=== PATIENT | female | born 1960 | race Caucasian/White ===

== ENCOUNTER 2019-11-03 07:47 | Outpatient (CLI) | payer OTHER | END 2019-11-03 07:48 | disposition critical access hospital (66) | LOC: EMS 07:47 | PROVIDERS: ATTEND Surgery | DX: R01.2 Other cardiac sounds (principal); R11.2 Nausea with vomiting, unspecified; R25.2 Cramp and spasm | CPT/HCPCS: A0425; A0429 ==

== ENCOUNTER 2020-05-11 12:07 | Emergency (ER) | payer OTHER ==
[2020-05-11] MEDS ORDERED: HYDROcod/ACETAM 5/325 MG TABLET PO STA (12:49)
[2020-05-11] MEDS ORDERED: KETOROLAC 60 MG/2 ML VIAL IM STA (12:52)
--- NOTE | 2020-05-11 12:52 | ED Physician Documentation ---
History of Present Illness - Stated complaint Stated Complaint: LT SHOULDER PX - Chief complaint Chief Complaint: Ext Problem - History obtained from History obtained from: Patient - History of Present Illness Timing: Last night - Additonal information Additional information: 59-year-old female presents to the emergency department for evaluation of left shoulder pain after a fall in her bathroom yesterday evening. She fell onto the left shoulder. She reports that she felt a pop in the shoulder and the pain was so severe she could not get off the ground for nearly 1 hour. She does deny any loss of consciousness. Her partner used his TENS unit on the shoulder and she reported that it helped the pain.She has not taken anything orally for pain. She denies any history of previous injury. She cannot abduct or abduct the shoulder without pain at the AC joint. Review of Systems Constitutional: reports: Reviewed and negative Ears: reports: Reviewed and negative Nose: reports: Reviewed and negative Throat: reports: Reviewed and negative Cardiac: reports: Reviewed and negative Respiratory: reports: Reviewed and negative Skin: reports: Reviewed and negative Musculoskeletal: reports: Joint pain. denies: Neck pain, Back pain, Extremity swelling, Joint swelling, Pain with weight bearing Neurologic: reports: Reviewed and negative PD PAST MEDICAL HISTORY - Past Medical History Respiratory: Asthma GI: GERD - Past Surgical History Past Surgical History: Yes General: Bowel surgery - Present Medications Home Medications: Ambulatory Orders Medication Instructions Recorded Confirmed ARIPiprazole [Aripiprazole] 5 mg PO DAILY 11/03/19 11/03/19 Cetirizine HCl 10 mg PO DAILY 11/03/19 11/03/19 Lamotrigine [Lamotrigine ER] 2 tab DAILY 11/03/19 11/03/19 Montelukast Sodium 10 mg PO QPM 11/03/19 11/03/19 Omeprazole 40 mg PO DAILY 11/03/19 11/03/19 Oxybutynin [Oxytrol For Women] 1 each TD Q3D #30 patch.td.4 11/06/19 Hydrocodone/Acetaminophen [[place] 1 each PO TID PRN #20 tablet 05/11/20 5-325 Tablet] Ibuprofen [Motrin] 600 mg PO Q6H PRN #30 tab 05/11/20 - Allergies Allergies/Adverse Reactions: Allergies Allergy/AdvReac Type Severity Reaction Status Date / Time No Known Drug Allergies Allergy Verified 05/11/20 12:30 - Social History Does the pt smoke?: No Smoking Status: Never smoker Does the pt drink ETOH?: No Does the pt have substance abuse?: No - Immunizations Immunizations are current?: Yes PD ED PE NORMAL - General General: Alert and oriented X 3, Other (painful, crying) - HEENT HEENT: EOMI - Cardiac Cardiac: RRR, No murmur - Respiratory Respiratory: No respiratory distress, Clear bilaterally - Abdomen Abdomen: Normal bowel sounds - Back Back: No CVA TTP, No spinal TTP - Derm Derm: Normal color, Warm and dry, No rash - Extremities Extremities: No deformity. No: No tenderness to palpate, Normal ROM s pain (tenderness left shoulder at the AC joint. no pail with palpation of proximal humerus, scapula. Pt unable to move left shoulder withotu use of the right arm. 2+ radial pulse) - Neuro Neuro: Alert and oriented X 3, test borer 2-12 intact, No motor deficit Eye Opening: Spontaneous Motor: Obeys Commands Verbal: Oriented GCS Score: 15 Results - Vitals Vitals: Vital Signs - 24 hr 05/11/20 12:24 Temperature 36.9 C Heart Rate 82 Respiratory 16 Rate Blood Pressure 137/99 H O2 Saturation 93 Oxygen O2 Source Room air - Rads (name of study) Left shoulder/Clavicle Radiology: Final report received (Distal clavicular fracture on the left, no signs of a ligamentous disruption. No proximal humeral fracture found) PD MEDICAL DECISION MAKING - ED course Complexity details: reviewed results, re-evaluated patient, considered differential, d/w patient, d/w family ED course: 59-year-old female presents to the emergency department with acute left shoulder pain after a fall yesterday evening at home. X-ray of the shoulder and clavicle demonstrates a nondisplaced but slightly angulated left distal clavicle fracture. There is no tenting of the skin. Patient has normal cardiopulmonary respirations. Patient has been placed in a arm sling And will be referred to orthopedics for follow-up. I do recommend that she take Tylenol and ibuprofen for analgesia and [place] for severe pain only. Emergent return precautions discussed Departure - Departure Disposition: 01 Home, Self Care Clinical Impression: Closed left clavicular fracture Qualifiers: Encounter type: initial encounter Clavicle location: lateral end Fracture alignment: displaced Qualified Code(s): S42.032A - Displaced fracture of lateral end of left clavicle, initial encounter for closed fracture Condition: Stable Record reviewed to determine appropriate education?: Yes Instructions: ED Fx Clavicle Ch Follow-Up: [facility] [Provider Group] Prescriptions: Ibuprofen [Motrin] 600 mg PO Q6H PRN #30 tab PRN Reason: Pain Hydrocodone/Acetaminophen [[place] 5-325 Tablet] 1 each PO TID PRN #20 tablet PRN Reason: Pain Comments: Unfortunately the x-ray show that you have a fracture on the left clavicle. Typically this is a fracture that simply takes time to heal. We do recommend that you wear the arm sling for comfort. I would like you to place ice over the clavicle for 10 minutes 2 or 3 times a day. I also recommend that you take ibuprofen with food for pain and use the [place] for severe pain only. Please call the orthopedic doctor department for follow-up. I would like you to also schedule follow-up with your primary care doctor to discuss longer-term pain management. If at any point you develop difficulty breathing, have numbness or tingling in your hand develop arm swelling or have any other emergent concerns please return immediately to the ER
--- NOTE | 2020-05-11 13:50 | XRAY Report ---
PROCEDURE: Clavicle LT INDICATIONS: fall; ? AC separation TECHNIQUE: 2 views of the clavicle were acquired. COMPARISON: None. FINDINGS: Bones: No dislocations. No suspicious bony lesions. Note is made of a mildly displaced distal clav icular fracture which does not appear to extend into the AC joint. Abnormal widening of the AC joint is not found, and there is no elevation of the clavicle at the coracoclavicular area. Soft tissues: No suspicious soft tissue calcifications. IMPRESSION: Acute mildly displaced distal left clavicular fracture without evidence of ligamentous laxity enlargi ng the AC joint or the coracoclavicular joint. Reviewed by: Johnathon Clark MD on 05/11/2020 1:49 PM PDT Approved by: Johnathon Clark MD on 05/11/2020 1:49 PM PDT Station ID: [id number]
--- NOTE | 2020-05-11 13:52 | XRAY Report ---
PROCEDURE: Shoulder 3 View LT INDICATIONS: fall; r/o fx TECHNIQUE: 4 views of the shoulder were acquired. COMPARISON: None. FINDINGS: Bones: No dislocations. No suspicious bony lesions. Visualized ribs appear intact. Note is made of the distal left clavicular fracture, mildly displaced, without abnormal alignment at the acromioclav icular or coracoclavicular ligaments. Soft tissues: No suspicious soft tissue calcifications. IMPRESSION: Distal clavicular fracture on the left, no sign of ligamentous disruption. No proximal h umeral fracture found. Reviewed by: Johnathon Clark MD on 05/11/2020 1:50 PM PDT Approved by: Johnathon Clark MD on 05/11/2020 1:50 PM PDT Station ID: [id number]
[2020-05-11 14:12] VITALS: BP 147/89
--- NOTE | 2020-05-11 14:17 | XRAY Report ---
PROCEDURE: Chest 1 View X-Ray INDICATIONS: chest pain TECHNIQUE: One view of the chest was acquired. COMPARISON: None FINDINGS: Surgical changes and devices: None. Lungs and pleura: No pleural effusions or pneumothorax. Lungs are clear. Mediastinum: Mediastinal contours appear normal. Mild cardiomegaly. Bones and chest wall: No suspicious bony lesions. Overlying soft tissues appear unremarkable. IMPRESSION: Cardiomegaly. No evidence acute pulmonary process. Reviewed by: Shaq Almonte MD on 05/11/2020 1:16 PM AKDT Approved by: Shaq Almonte MD on 05/11/2020 1:16 PM AKDT Station ID: [id number]
== END 2020-05-11 14:19 | disposition home or self-care (01) ==
LOC: ED 12:07
DX: S42.035A Nondisplaced fracture of lateral end of left clavicle, initial encounter for closed fracture (principal); W19.XXXA Unspecified fall, initial encounter; Y92.002 Bathroom of unspecified non-institutional (private) residence as the place of occurrence of the external cause
CPT/HCPCS: 71045; 73000; 73030; 96372; 99284; A9270

== ENCOUNTER 2020-07-24 13:43 | Outpatient (CLI) | payer OTHER ==
--- NOTE | 2020-07-24 13:46 | XRAY Report ---
PROCEDURE: Clavicle LT INDICATIONS: DISPLACED FX OF SHAFT OF L CLAVICLE TECHNIQUE: 2 views of the clavicle were acquired. COMPARISON: Prior acute trauma plain films 05/11/2020. FINDINGS: Bones: No previously unidentified fractures or dislocations. Mildly impacted healing or healed left distal clavicular fracture. No suspicious bony lesions. Soft tissues: No suspicious soft tissue calcifications. IMPRESSION: Mildly impacted healing or healed distal left clavicular fracture, with no additional traumatic injur y to the left shoulder or chest visualized. Reviewed by: Johnathon Clark MD on 07/24/2020 1:44 PM PST Approved by: Johnathon Clark MD on 07/24/2020 1:44 PM PST Station ID: [id number]
== END 2020-07-24 23:59 | disposition home or self-care (01) ==
LOC: DI.N 13:43
PROVIDERS: ATTEND Orthopaedic Surgery
DX: S42.022A Displaced fracture of shaft of left clavicle, initial encounter for closed fracture (principal)

== ENCOUNTER 2020-09-04 07:26 | Outpatient (CLI) | payer OTHER ==
--- NOTE | 2020-09-04 20:07 | XRAY Report ---
PROCEDURE: Clavicle LT INDICATIONS: DISPLACED FX OF SHAFT OF L CLAVICLE TECHNIQUE: 2 views of the clavicle were acquired. COMPARISON: 07/24/2020. FINDINGS: Bones: Redemonstration of known distal left clavicular fracture with overriding of the distal fractur e fragment. Stable alignment. Suggestion of decreased conspicuity of the fracture line compatible wit h progress towards fracture healing. No suspicious bony lesions. Soft tissues: No suspicious soft tissue calcifications. IMPRESSION: Stable alignment of distal left clavicular fracture with findings suggesting progress towards fractur e healing. Reviewed by: Amarjit Sherman MD on 09/04/2020 7:05 PM AK Approved by: Amarjit Sherman MD on 09/04/2020 7:05 PM AK Station ID: [id number]
== END 2020-09-04 23:59 | disposition home or self-care (01) ==
LOC: DI.N 07:26
PROVIDERS: ATTEND Orthopaedic Surgery
DX: S42.022D Displaced fracture of shaft of left clavicle, subsequent encounter for fracture with routine healing (principal)

== ENCOUNTER 2021-02-09 23:35 | Outpatient (CLI) | payer OTHER | END 2021-02-09 23:36 | disposition critical access hospital (66) | LOC: EMS 23:35 | DX: R10.9 Unspecified abdominal pain (principal); R11.2 Nausea with vomiting, unspecified | CPT/HCPCS: A0425; A0427 ==

== ENCOUNTER 2021-02-10 00:31 | Emergency (ER) | payer OTHER ==
[2021-02-10] MEDS ORDERED: SODIUM CHLORIDE 0.9% 1,000 ML IV STA (00:43)
[2021-02-10] MEDS ORDERED: ONDANSETRON 4 MG/2 ML VIAL IVP STA (00:43)
--- NOTE | 2021-02-10 00:49 | ED Physician Documentation ---
History of Present Illness - Stated complaint Stated Complaint: ABD PX - Chief complaint Chief Complaint: Abd Pain - History obtained from History obtained from: Patient - Additonal information Additional information: 60-year-old woman with history of frequent small bowel obstruction with four ex laps to correct them, most recent 7 years ago at [facility], also with history of open hysterectomy and laparoscopic cholecystectomy, presents with epigastric pain sudden in onset about 2 hours prior to arrival, intermittent spasming that is 10 out of 10, associated with nonbloody nonbilious nausea and vomiting. She also has had several episodes of nonbloody diarrhea today. denies cp, sob, lightheadedness, fever. Review of Systems Ten Systems: 10 systems reviewed and negative Constitutional: denies: Fever, Chills Cardiac: denies: Chest pain / pressure Respiratory: denies: Dyspnea GI: reports: Abdominal Pain, Nausea, Vomiting, Diarrhea : denies: Dysuria Musculoskeletal: reports: Back pain PD PAST MEDICAL HISTORY - Past Medical History Respiratory: Asthma GI: GERD - Past Surgical History Past Surgical History: Yes General: Bowel surgery - Present Medications Home Medications: Ambulatory Orders Medication Instructions Recorded Confirmed ARIPiprazole [Aripiprazole] 5 mg PO DAILY 11/03/19 11/03/19 Cetirizine HCl 10 mg PO DAILY 11/03/19 11/03/19 Lamotrigine [Lamotrigine ER] 2 tab DAILY 11/03/19 11/03/19 Montelukast Sodium 10 mg PO QPM 11/03/19 11/03/19 Omeprazole 40 mg PO DAILY 11/03/19 11/03/19 Oxybutynin [Oxytrol For Women] 1 each TD Q3D #30 patch.td.4 11/06/19 Ibuprofen [Motrin] 600 mg PO Q6H PRN #30 tab 05/11/20 Ondansetron Odt [Zofran] 4 mg TL Q6H PRN #10 tablet 02/10/21 risperiDONE [RisperDAL] 02/10/21 - Allergies Allergies/Adverse Reactions: Allergies Allergy/AdvReac Type Severity Reaction Status Date / Time No Known Drug Allergies Allergy Verified 02/10/21 00:52 - Social History Does the pt smoke?: No Smoking Status: Never smoker Does the pt drink ETOH?: No Does the pt have substance abuse?: No - Immunizations Immunizations are current?: Yes PD ED PE NORMAL - Vitals Vital signs reviewed: Yes - General General: Alert and oriented X 3, No acute distress, Well developed/nourished - HEENT HEENT: Atraumatic, PERRL, EOMI - Neck Neck: Supple, no meningeal sign - Cardiac Cardiac: RRR - Respiratory Respiratory: No respiratory distress, Clear bilaterally - Abdomen Abdomen: Other (epigastrium ttp. discomfort diffusely to palpation) - Derm Derm: Normal color - Extremities Extremities: No deformity - Neuro Neuro: Alert and oriented X 3 - Psych Psych: Normal mood, Normal affect Results - Vitals Vitals: Vital Signs - 24 hr 02/10/21 02/10/21 02/10/21 00:43 02:46 04:00 Temperature 36.2 C L 36.5 C Heart Rate 68 63 84 Respiratory 18 18 18 Rate Blood Pressure 146/91 H 127/81 H 112/62 O2 Saturation 98 96 94 Oxygen O2 Source Room air - EKG (time done) 0230 Rate: Rate (enter#) (63) Rhythm: NSR QRS: LVH Computer interpretation: Disagree with computer (no BOUBACAR in inferior leads. motion artifact) - Labs Labs: Laboratory Tests 02/10/21 02/10/21 02/10/21 00:54 00:54 03:00 WBC 12.2 H RBC 4.16 L Hgb 12.0 Hct 36.9 L MCV 88.7 MCH 28.8 MCHC 32.5 RDW 12.8 Plt Count 285 MPV 10.0 Neut # (Auto) 9.7 H Lymph # (Auto) 1.5 Pender # (Auto) 0.8 Eos # (Auto) 0.1 Baso # (Auto) 0.1 Absolute Nucleated RBC 0.00 Nucleated RBC % 0.0 Sodium 137 Potassium 3.4 L Chloride 105 Carbon Dioxide 22 Anion Gap 10.0 BUN 9 Creatinine 1.0 Estimated GFR (MDRD) 57 L Glucose 113 H Calcium 8.7 Total Bilirubin 1.2 H AST 93 H ALT 40 Alkaline Phosphatase 153 H Total Protein 7.3 Albumin 3.8 Globulin 3.5 Albumin/Globulin Ratio 1.1 Lipase 33 Urine Color YELLOW Urine Clarity CLEAR Urine pH 6.5 Ur Specific Borden <=1.005 Urine Protein NEGATIVE Urine Glucose (UA) NEGATIVE Urine Ketones NEGATIVE Urine Occult Blood NEGATIVE Urine Nitrite NEGATIVE Urine Bilirubin NEGATIVE Urine Urobilinogen 0.2 (NORMAL) Ur Leukocyte Esterase NEGATIVE Ur Microscopic Review NOT INDICATED Urine Culture Comments NOT INDICATED PD MEDICAL DECISION MAKING - ED course ED course: 60-year-old woman with frequent small bowel obstructions presents with abdominal pain today. Will evaluate further evaluate CT scan. Departure - Departure Disposition: Home, Self Care Clinical Impression: Abdominal pain, Hiatal hernia, Nausea, Pulmonary nodule Condition: Good Instructions: Hiatal Hernia, ED Nodule Solitary Pulmonary Prescriptions: Ondansetron Odt [Zofran] 4 mg TL Q6H PRN #10 tablet PRN Reason: Nausea / Vomiting Comments: You were seen in the emergency department for abdominal pain and found to have a hiatal hernia on CT. You do not have a small bowel obstruction at this time. You also have a spot on your lung and the radiologist recommended that you get a follow-up CT of the chest to evaluate this further. Please see your doctor in [place] in order to have this completed. Return to the emergency department if you develop any new or worsening symptoms or have other concerns. Glad you are feeling better!
[2021-02-10] MEDS ORDERED: IOPAMIDOL-300 50 ML VIAL ONE (00:50)
[2021-02-10] MEDS ORDERED: IOVERSOL 320 100 ML VIAL IVP ONE ×2 (00:50→05:08)
[2021-02-10 00:58] LABS: BASOPHILS # (AUTO) 0.1 10^3/uL (0.0-0.1); BASOPHILS % (AUTO) 0.6 %; EOSINOPHILS # (AUTO) 0.1 10^3/uL (0.0-0.7); EOSINOPHILS % (AUTO) 0.7 %; HCT - HEMATOCRIT 36.9 % (37.0-47.0); LYMPHOCYTES # (AUTO) 1.5 10^3/uL (1.5-3.5); LYMPHOCYTES % (AUTO) 12.3 %; MEAN CORPUSCULAR HEMOGLOBIN 28.8 pg (27.0-31.0); MEAN CORPUSCULAR HGB CONC 32.5 g/dL (32.0-36.0); MEAN CORPUSCULAR VOLUME 88.7 fL (81.0-99.0); MONOCYTES # (AUTO) 0.8 10^3/uL (0.0-1.0); MONOCYTES % (AUTO) 6.4 %; NEUTROPHILS # (AUTO) 9.7 10^3/uL (1.5-6.6); NEUTROPHILS % (AUTO) 79.7 %; PLT - PLATELET COUNT 285 10^3/uL (130-450); RED BLOOD COUNT 4.16 10^6/uL (4.20-5.40); RED CELL DISTRIBUTION WIDTH 12.8 % (12.0-15.0); WHITE BLOOD COUNT 12.2 x10^3/uL (4.8-10.8)
[2021-02-10 01:13] LABS: ALBUMIN 3.8 g/dL (3.2-5.5); ALBUMIN/GLOBULIN RATIO 1.1 (1.0-2.2); BILIRUBIN,TOTAL 1.2 mg/dL (0.2-1.0); CALCIUM 8.7 mg/dL (8.5-10.3); POTASSIUM 3.4 mmol/L (3.5-5.0); TOTAL PROTEIN 7.3 g/dL (6.7-8.2)
[2021-02-10] MEDS ORDERED: HYDROmorphone 1 MG/ML CARPUJECT IVP STA (02:42)
[2021-02-10 03:09] LABS: BILIRUBIN,URINE NEGATIVE (NEGATIVE); GLUCOSE, URINE (UA) NEGATIVE (NEGATIVE); KETONES,URINE (UA) NEGATIVE (NEGATIVE); LEUKOCYTE ESTERASE, URINE NEGATIVE (NEGATIVE); NITRITE,URINE NEGATIVE (NEGATIVE); OCCULT BLOOD,URINE NEGATIVE (NEGATIVE); PH,URINE 6.5 PH (5.0-7.5); PROTEIN,URINE NEGATIVE (NEGATIVE); UROBILINOGEN,URINE 0.2 (NORMAL) E.U./dL (NORMAL)
[2021-02-10 03:18] LABS: CLARITY,URINE CLEAR (CLEAR)
[2021-02-10] MEDS ORDERED: IOPAMIDOL-300 50 ML VIAL PO ONE (05:09)
[2021-02-10 05:56] VITALS: BP 106/82
--- NOTE | 2021-02-10 08:26 | CT Report ---
PROCEDURE: Abdomen/Pelvis W INDICATIONS: epigastric abd pain sudden onset tonight, n/v CONTRAST: IV CONTRAST: Optiray 320 ml: 100 PO CONTRAST: Isovue 300 ml50 TECHNIQUE: After the administration of intravenous contrast, 5 mm thick sections acquired from the diaphragms to the symphysis. 5 mm thick coronal and sagittal reformats were acquired. For radiation dose reducti on, the following was used: automated exposure control, adjustment of mA and/or kV according to mary ent size. COMPARISON: None. FINDINGS: Image quality: Excellent. ABDOMEN: Lung bases: On the most superior image there is a 1.6 cm noncalcified pulmonary nodule. Chest CT is recommended. Lung bases are clear. Heart size is normal. Solid organs: Liver and spleen are normal in size and enhancement. Gallbladder is surgically absent Biliary system is non dilated. Pancreas enhances normally. No adrenal nodules. Kidneys demonstra te normal size and enhancement, without hydronephrosis. Peritoneum and bowel: There is no dilated inflamed appendix identified. The terminal ileum is somewha t prominent with questionable wall fatty infiltration suggesting previous inflammation. The ileocecal valve is prominent. No colonic wall thickening is identified. No free fluid or air. Nodes and vessels: No retroperitoneal or mesenteric adenopathy by size criteria. Aorta and inferior vena cava are normal in size. Miscellaneous: No ventral hernias. PELVIS: Genitourinary: Bladder wall thickness is normal. Miscellaneous: No inguinal hernias or adenopathy. Remote hysterectomy. A pessary device is in place . Bones: No suspicious bony lesions. No vertebral body compression fractures. IMPRESSION: 1. 1.6 cm noncalcified right pulmonary nodule is seen on the highest image. Recommend dedicated chest CT. 2. Mild prominence of the terminal ileum without acute inflammation. Suggestion of previous inflammat ion. 3. No evidence of acute abdominal process. 4. Remote cholecystectomy and hysterectomy. A preliminary report with the above findings was provided at the time of the study by [facility]. Reviewed by: Shaq Almonte MD on 02/10/2021 7:25 AM MAX Approved by: Shaq Almonte MD on 02/10/2021 7:25 AM MAX Station ID: [id number]
== END 2021-02-10 06:00 | disposition home or self-care (01) ==
LOC: EDUNIT# → ED 00:31
DX: K44.9 Diaphragmatic hernia without obstruction or gangrene (principal); R91.1 Solitary pulmonary nodule; Z87.19 Personal history of other diseases of the digestive system
CPT/HCPCS: 36415; 74177; 80053; 81003; 83690; 85025; 93005; 96361; 96374; 96375; 99284; J1170; Q9967; 81001; 87086

== ENCOUNTER 2022-07-03 13:48 | Outpatient (CLI) | payer OTHER ==
--- NOTE | 2022-07-10 12:03 | Mammography Report ---
BILATERAL DIGITAL SCREENING MAMMOGRAM 3D/2D: 07/03/2022 CLINICAL: Routine screening. No prior exams were available for comparison. There are scattered areas of fibroglandular density in both breasts (category b / 25%-50% glandular t issue). No significant masses, calcifications, or other findings are seen in either breast. IMPRESSION: NEGATIVE There is no mammographic evidence of malignancy. A 1 year screening mammogram is recommended. Based on the Tyrer Cuzick model (a risk assessment model) the patients lifetime risk is 9.2% and her 10 year risk is 3.5%. According to the ACR, ACS, and NCCN guidelines, an annual breast MRI exam vasile g with mammogram is recommended if the patients lifetime risk is 20% or greater. This exam was interpreted at Station ID: [id number]. NOTE: For mammograms, a report in lay terms will be sent to the patient. Approximately 15% of breast malignancies will not be visualized mammographically. In the management of a palpable breast mass, a negative mammogram must not discourage biopsy of a clinically suspicious lesion. Electronically Signed By: Amarjit abdi/daniel:07/10/2022 08:38:13 ACR BI-RADS Category 1: Negative 3341F PARENCHYMAL PATTERN: (A) - The breast(s) demonstrate(s) scattered fibroglandular densities. BI-RADS CATEGORY: (1) - 1 RECOMMENDATION: (ANNUAL) - Recommend routine annual screening mammography. [id number] 1 year screening LATERALITY: (B)
== END 2022-07-03 13:49 | disposition home or self-care (01) ==
LOC: DI.N 13:48
PROVIDERS: ATTEND Physician Assistant
DX: Z12.31 Encounter for screening mammogram for malignant neoplasm of breast (principal)

== ENCOUNTER 2022-10-22 11:04 | Emergency (ER) | payer OTHER ==
[2022-10-22] MEDS ORDERED: HYDROcod/ACETAM 5/325 MG TABLET PO STA (11:53)
[2022-10-22] MEDS ORDERED: DEXAMETHASONE 10 MG/ML VIAL IM STA (11:53)
[2022-10-22] MEDS ORDERED: KETOROLAC 60 MG/2 ML VIAL IM STA (11:53)
--- NOTE | 2022-10-22 12:27 | ED Physician Documentation ---
PD HPI ABD PAIN - Stated complaint Stated Complaint: LFT LOWER ABD PX - Chief complaint Chief Complaint: Abd Pain - History obtained from History obtained from: Patient - Additional information Additional information: The patient comes to the emergency department chief complaint of left rib and flank pain that started a few days ago. She states that it is a sharp pain she also has some heartburn. She has a history of bowel obstructions and at first was worried about this, but has not had any vomiting or lapse in her bowel movement/flatus. The patient states that she has a sharp pain over her left inferolateral rib cage that hurts worse with deep breaths and other movements. She has not had any injury to the area. She denies any history of zoster and has not noticed a rash. Patient has not been ill with anything recently. No cough or shortness of breath, though it does hurt to take a deep breath. Patient denies any other complaints at this time. 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 : None HEENT: None Psych: Depression, Anxiety Musculoskeletal: None Derm: None - Past Surgical History Past Surgical History: Yes General: Cholecystectomy, Bowel surgery /SHOPPING INVESTIGATOR: Hysterectomy, Oophrectomy - Present Medications Home Medications: Ambulatory Orders Medication Instructions Recorded Confirmed ARIPiprazole [Aripiprazole] 5 mg PO DAILY 11/03/19 10/22/22 Cetirizine HCl 10 mg PO DAILY 11/03/19 10/22/22 Lamotrigine [Lamotrigine ER] 2 tab DAILY 11/03/19 11/03/19 Montelukast Sodium 10 mg PO QPM 11/03/19 10/22/22 Omeprazole 40 mg PO DAILY 11/03/19 10/22/22 risperiDONE [RisperDAL] 0.25 mg ORAL HS 02/10/21 10/22/22 HYDROcod/ACETAM 5/325 [Stella 5/325] 1 - 2 tablet PO Q6H PRN #10 tablet 10/22/22 predniSONE [Deltasone] 60 mg PO DAILY 5 Days #15 tablet 10/22/22 - Allergies Allergies/Adverse Reactions: Allergies Allergy/AdvReac Type Severity Reaction Status Date / Time No Known Drug Allergies Allergy Verified 10/22/22 11:28 - Social History Does the pt smoke?: No Smoking Status: Never smoker Does the pt drink ETOH?: No Does the pt have substance abuse?: Yes Substance Use and Type: Marijuana - Immunizations Immunizations are current?: Yes PD ED PE NORMAL - Vitals Vital signs reviewed: Yes - General General: Alert and oriented X 3, No acute distress, Well developed/nourished, Other (The patient appears moderately uncomfortable but otherwise in no apparent distress.) - HEENT HEENT: Atraumatic, PERRL, EOMI, Moist mucous membranes - Neck Neck: Supple, no meningeal sign - Cardiac Cardiac: RRR, No murmur - Respiratory Respiratory: No respiratory distress, Clear bilaterally - Abdomen Abdomen: Soft, Non tender, Non distended - Derm Derm: Normal color, Warm and dry, No rash - Extremities Extremities: No deformity, No edema - Neuro Neuro: Alert and oriented X 3, No motor deficit, No sensory deficit - Psych Psych: Normal mood, Normal affect PD ED PE EXPANDED - Free text exam Free text exam: Exquisite tenderness over left inferolateral rib cage. No deformity. No crep itus. No mass or fluctuance. Results - Vitals Vitals: Oxygen O2 Source Room air - Rads (name of study) L ribs/chest XR Radiology: Final report received, See rad report (neg) PD Medical Decision Making - ED course Complexity details: reviewed results, re-evaluated patient, considered differential, d/w patient ED course: The pt was treated symptomatically in the ED, and worked up with CXR, which was negative. I d/w pt that her pain is localized over her L ribs, but is atraumatic. She has no abdominal tenderness, and I do not feel abdominal work- up is indicated. We have discussed that this is most likely of a musculoskeletal etiology, and is expected to resolve on its own. We have discussed the usual indications for return. Departure - Departure Disposition: 01 Home, Self Care Clinical Impression: Chest wall pain Condition: Stable Instructions: ED Chest Pain Costochondritis Prescriptions: predniSONE [Deltasone] 60 mg PO DAILY 5 Days #15 tablet HYDROcod/ACETAM 5/325 [Stella 5/325] 1 - 2 tablet PO Q6H PRN #10 tablet PRN Reason: Pain Comments: Your x-ray series looks good. You have tenderness very distinctly over your lateral lower rib cage on the left. There is no abdominal tenderness and you do not have any symptoms of bowel obstruction. Your symptoms are most consistent with inflammation of one of the musculoskeletal structures of the chest wall. This will most likely calm down on its own, given time. A prescription for the pain medication and steroid has been electronically transmitted to the [facility] in [place]. If you develop a high fever or severely worsening pain, you may return to the emergency department. If you break out in a rash over the area, you most likely have shingles and can consider asking your doctor to put you on an antiviral. In general, though, your symptoms are expected to resolve on their own, given the next few days to week or two. Discharge Date/Time: 10/22/22 13:39
--- NOTE | 2022-10-22 12:27 | XRAY Report ---
PROCEDURE: Ribs w/PA Chest LT INDICATIONS: L rib pain TECHNIQUE: 4 views of the left ribs were acquired, along with a single view chest. COMPARISON: Chest radiograph dated 05/11/2020 FINDINGS: Surgical changes and devices: None. Bones and chest wall: No fractures or dislocations. No suspicious bony lesions. Overlying soft tis sues appear unremarkable. Lungs and pleura: No pleural effusions or pneumothorax. Lungs appear clear. Mediastinum: Mediastinal contours appear normal. Heart size is normal. IMPRESSION: No gross displaced left rib fracture is seen. No acute cardiopulmonary pathology. Reviewed by: Caden Cunha MD on 10/22/2022 12:25 PM PST Approved by: Caden Cunha MD on 10/22/2022 12:25 PM PST Station ID: [id number]
[2022-10-22 13:37] VITALS: BP 149/89
== END 2022-10-22 13:39 | disposition home or self-care (01) ==
LOC: ED 11:04
DX: R07.89 Other chest pain (principal)
CPT/HCPCS: 71101; 96372; 99283; A9270

== ENCOUNTER 2023-08-12 12:08 | Outpatient (CLI) | payer OTHER ==
--- NOTE | 2023-08-13 12:12 | Mammography Report ---
BILATERAL DIGITAL SCREENING MAMMOGRAM 3D/2D: 08/12/2023 CLINICAL: Routine screening. Family history of breast cancer. Comparison is made to exam dated: 07/03/2022 mammogram - [facility]. There are scattered areas of fibroglandular density in both breasts (category b / 25%-50% glandular t issue). No significant masses, calcifications, or other findings are seen in either breast. There has been no significant interval change. IMPRESSION: NEGATIVE There is no mammographic evidence of malignancy. A 1 year screening mammogram is recommended. Based on the Tyrer Cuzick model (a risk assessment model) the patients lifetime risk is 9.0% and her 10 year risk is 3.6%. According to the ACR, ACS, and NCCN guidelines, an annual breast MRI exam vasile g with mammogram is recommended if the patients lifetime risk is 20% or greater. This exam was interpreted at Station ID: [id number]. NOTE: For mammograms, a report in lay terms will be sent to the patient. Approximately 15% of breast malignancies will not be visualized mammographically. In the management of a palpable breast mass, a negative mammogram must not discourage biopsy of a clinically suspicious lesion. Electronically Signed By: Amarjit Sherman M.D. [email or web address]:08/12/2023 20:13:35 letter sent: No_Letter ACR BI-RADS Category 1: Negative 3341F PARENCHYMAL PATTERN: (A) - The breast(s) demonstrate(s) scattered fibroglandular densities. BI-RADS CATEGORY: (1) - 1 Mammogram [id number] 1 year screening LATERALITY: (B)
== END 2023-08-12 12:09 | disposition home or self-care (01) ==
LOC: DI.N 12:08
PROVIDERS: ATTEND Student in an Organized Health Care Education/Training Program
DX: Z12.31 Encounter for screening mammogram for malignant neoplasm of breast (principal); Z80.3 Family history of malignant neoplasm of breast; R92.323 Mammographic fibroglandular density, bilateral breasts

== ENCOUNTER 2024-03-01 01:35 | Outpatient (CLI) | payer OTHER | END 2024-03-01 01:36 | disposition critical access hospital (66) | LOC: EMS 01:35 | DX: R07.89 Other chest pain (principal); R06.4 Hyperventilation | CPT/HCPCS: A0425; A0429 ==

== ENCOUNTER 2024-03-01 02:06 | Emergency (ER) | payer OTHER ==
--- NOTE | 2024-03-01 02:20 | ED Physician Documentation ---
History of Present Illness - Stated complaint Stated Complaint: CP - History obtained from History obtained from: Patient - Additonal information Additional information: The patient comes to the emergency department chief complaint of chest pressure. The patient reports that she had felt as though she was having a "mild panic attack", but then began to feel a discomfort across her left chest that settled into her substernal area and felt like "an elephant's foot on my chest". The patient took a nitro which seemed to help and then drink some water, but she began to feel as though the water was refluxing into her esophagus. She felt the pressure sensation in her chest again so she took another nitro and drink more water and again began to feel a pressure due to. The patient then vomited and then took 1 more nitro and she states that after that things seem to get better. The patient then called 911. She states she has a history of the symptoms previously and about a year ago was seen at [facility] in [place] for something similar. Her troponin was elevated at that higher, and she was sent to [facility] where angiogram was done and she was found to have clear coronary arteries. However, she states the property administrator told her that her "heart muscle was spasming" and put her on a medication to prevent "heart muscle spasm". The patient states she is feeling completely better now after her episode this evening. No other complaints at this time. 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: Other : None HEENT: None Psych: Depression, Anxiety Musculoskeletal: None Derm: None - Past Surgical History Past Surgical History: Yes General: Cholecystectomy, Bowel surgery /OPEN SOAPER TENDER: Hysterectomy, Oophrectomy - Present Medications Home Medications: Ambulatory Orders Medication Instructions Recorded Confirmed Montelukast Sodium 10 mg PO QPM 11/03/19 03/01/24 Omeprazole 40 mg PO DAILY 11/03/19 03/01/24 Amlodipine Besylate 2.5 mg PO DAILY 03/01/24 03/01/24 Atorvastatin Calcium 40 mg PO DAILY 03/01/24 03/01/24 Fluoxetine HCl [Prozac] 40 mg PO DAILY 03/01/24 03/01/24 clonazePAM [Klonopin] 0.5 mg PO QPM PRN 03/01/24 03/01/24 - Allergies Allergies/Adverse Reactions: Allergies Allergy/AdvReac Type Severity Reaction Status Date / Time No Known Drug Allergies Allergy Verified 03/01/24 02:11 - Social History Does the pt smoke?: No Smoking Status: Never smoker Does the pt drink ETOH?: No Does the pt have substance abuse?: Yes - Immunizations Immunizations are current?: Yes PD ED PE NORMAL - Vitals Vital signs reviewed: Yes - General General: Alert and oriented X 3, No acute distress, Well developed/nourished, Other (The patient appears slightly anxious but otherwise in no apparent distress.) - HEENT HEENT: Atraumatic, PERRL, EOMI, Moist mucous membranes - Neck Neck: Supple, no meningeal sign - Cardiac Cardiac: RRR, No murmur, Strong equal pulses - Respiratory Respiratory: No respiratory distress, Clear bilaterally - Abdomen Abdomen: Soft, Non tender, Non distended - Derm Derm: Normal color, Warm and dry, No rash - Extremities Extremities: No deformity, No edema, No calf tenderness / cord - Neuro Neuro: Other (Alert, grossly intact.) - Psych Psych: Normal affect, Other (Anxious) Results - Vitals Vitals: Vital Signs - 24 hr 03/01/24 03/01/24 03/01/24 02:06 03:23 04:00 Temperature 36.9 C Heart Rate 71 63 64 Respiratory 23 20 14 Rate Blood Pressure 122/84 H 122/87 H 126/68 O2 Saturation 100 97 98 03/01/24 05:37 Temperature Heart Rate 67 Respiratory 18 Rate Blood Pressure 106/66 O2 Saturation 98 Oxygen O2 Source Room air - EKG (time done) 0215 EKG releavant findings:: EKG personally interpreted by author of this note. Relevant findings are: Rate: Rate (enter#) (58) Rhythm: NSR [place]: LAD (Borderline) Intervals: Normal IN QRS: Normal Ischemia: Normal ST segments Compare to prior EKG: Old EKG unavailable Computer interpretation: Agree with computer - Labs Labs: Laboratory Tests 03/01/24 03/01/24 03/01/24 02:27 02:27 04:37 WBC 11.0 H RBC 4.30 Hgb 12.0 Hct 37.5 MCV 87.2 MCH 27.9 MCHC 32.0 RDW 12.9 Plt Count 299 MPV 10.3 Neut # (Auto) 7.8 H Lymph # (Auto) 1.9 [place] # (Auto) 1.1 H Eos # (Auto) 0.1 Baso # (Auto) 0.1 Absolute Nucleated RBC 0.00 Nucleated RBC % 0.0 Sodium 137 Potassium 3.4 L Chloride 104 Carbon Dioxide 22 Anion Gap 11.0 BUN 9 Creatinine 0.9 Estimated GFR (MDRD) 64 L Glucose 110 H Calcium 9.2 Total Bilirubin 1.1 H AST 156 H ALT 54 Alkaline Phosphatase 214 H Troponin I High Sens 4.3 6.0 Total Protein 6.4 Albumin 3.6 Globulin 2.8 Albumin/Globulin Ratio 1.3 Lipase 35 PD Medical Decision Making - ED course Complexity details: reviewed results, re-evaluated patient, considered differential, d/w patient ED course: The patient was worked up with labs including troponin and EKG. She was asymptomatic at this time. She was treated with IV fluids and a dose of Xanax. Workup including serial troponins was negative. The patient is feeling much better on reevaluation and was stable for discharge home. We have discussed home management of symptoms as well as usual indications for return. The patient has also been advised that she needs to follow-up with her primary doctor. Departure - Departure Disposition: 01 Home, Self Care Clinical Impression: Panic attack Chest pain Qualifiers: Chest pain type: unspecified Qualified Code(s): R07.9 - Chest pain, unspecified Condition: Stable Instructions: ED Chest Pain Atypical Unkn Cause, ED Panic Attack Comments: Your EKG looked good both sets of cardiac enzymes were normal. You were very anxious when you came in and some of your symptoms may have been due to an anxiety reaction. However, if you have an increased frequency of episodes of chest pain, you will need to follow-up with your primary doctor and property administrator to get to the bottom of what is going on. If you do develop chest pain that is unrelieved by nitroglycerin, and then you will need to return to the emergency department. However, at this point in time, there is no evidence of a heart attack or other emergent condition. Forms: PCP List Discharge Date/Time: 03/01/24 05:38
[2024-03-01 02:31] LABS: BASOPHILS # (AUTO) 0.1 10^3/uL (0.0-0.1); BASOPHILS % (AUTO) 0.8 %; EOSINOPHILS # (AUTO) 0.1 10^3/uL (0.0-0.7); HCT - HEMATOCRIT 37.5 % (37.0-47.0); LYMPHOCYTES # (AUTO) 1.9 10^3/uL (1.5-3.5); LYMPHOCYTES % (AUTO) 17.7 %; MEAN CORPUSCULAR HEMOGLOBIN 27.9 pg (27.0-31.0); MEAN CORPUSCULAR VOLUME 87.2 fL (81.0-99.0); MEAN PLATELET VOLUME 10.3 fL (7.9-10.8); MONOCYTES # (AUTO) 1.1 10^3/uL (0.0-1.0); MONOCYTES % (AUTO) 9.6 %; NEUTROPHILS # (AUTO) 7.8 10^3/uL (1.5-6.6); NEUTROPHILS % (AUTO) 70.6 %; PLT - PLATELET COUNT 299 10^3/uL (130-450); RED CELL DISTRIBUTION WIDTH 12.9 % (12.0-15.0)
[2024-03-01] MEDS: SODIUM CHLORIDE 0.9% 1,000 ML IV STA (02:38)
[2024-03-01] MEDS: ALPRAZolam 0.25 MG TABLET PO STA (02:38)
[2024-03-01 02:52] LABS: TROPONIN I HIGH SENSITIVITY 4.3 ng/L (2.3-14.8)
[2024-03-01 03:20] LABS: ALBUMIN 3.6 g/dL (3.2-5.5); ALBUMIN/GLOBULIN RATIO 1.3 (1.0-2.2); BILIRUBIN,TOTAL 1.1 mg/dL (0.2-1.0); CALCIUM 9.2 mg/dL (8.5-10.3); CREATININE 0.9 mg/dL (0.6-1.3); POTASSIUM 3.4 mmol/L (3.5-4.5); TOTAL PROTEIN 6.4 g/dL (6.4-8.9)
[2024-03-01 04:39] VITALS: O2SAT 98
[2024-03-01 05:43] VITALS: BP 106/66
== END 2024-03-01 05:38 | disposition home or self-care (01) ==
LOC: EDUNIT# → ED 02:06
DX: F41.0 Panic disorder [episodic paroxysmal anxiety] (principal); R07.9 Chest pain, unspecified; J45.909 Unspecified asthma, uncomplicated; G47.30 Sleep apnea, unspecified; Z79.899 Other long term (current) drug therapy
CPT/HCPCS: 36415; 80053; 83690; 84484; 85025; 93005; 99283; A9270